=== PATIENT | female | born 1965 | race African-American/Black ===

== ENCOUNTER → 2023-07-25 13:46 | Outpatient (REF) | payer OTHER, SELFPAY | LOC: RCS 13:46 | PROVIDERS: ATTENDING PHYSICIAN Internal Medicine Cardiovascular Disease; FAMILY PHYSICIAN Internal Medicine | DX: R06.09 Other forms of dyspnea (principal) | CPT/HCPCS: 93306 ==

== ENCOUNTER → 2023-07-27 13:46 | Outpatient (REF) | payer OTHER, SELFPAY ==
--- NOTE | 2023-07-27 15:15 | CARDSERVDEF ---
Echocardiogram with Definity completed after protocol screening completed. Allergies verified.
Patent IV site: _Rt hand___
IV site flushed with 0.9% NaCl pre and post administration.
Diluted bolus method utilized to enhance visualization of ventricular royal.
Total volume given: ___3.5_ mL
Patient tolerated all procedures well without complications.
#22 paco placed Rt hand. Definity given. INT d/c'd. dsg applied.
== END ==
LOC: RCS 13:46
PROVIDERS: ATTENDING PHYSICIAN Internal Medicine Cardiovascular Disease; FAMILY PHYSICIAN Internal Medicine
DX: R06.09 Other forms of dyspnea (principal)
CPT/HCPCS: 93017; 93350; Q9957

== ENCOUNTER → 2025-05-18 14:07 | Outpatient (REF) | payer OTHER, SELFPAY | LOC: RCS 14:07 | PROVIDERS: ATTENDING PHYSICIAN Internal Medicine Cardiovascular Disease; FAMILY PHYSICIAN Internal Medicine | DX: R07.9 Chest pain, unspecified (principal); R07.89 Other chest pain | CPT/HCPCS: 93017; 93350 ==

== ENCOUNTER 2025-05-18 22:23 | Inpatient (IN) | payer OTHER, SELFPAY ==
[2025-05-18 16:33] VITALS: BP 159/68
[2025-05-18 17:15] LABS: Hematocrit 45.4 % (37.0-47.0); Hemoglobin 14.6 g/dL (12.0-16.0); Mean Corp Hgb Conc. 32.2 g/dL (33.0-37.0); Mean Corpuscular Volume 92.1 fL (81.0-99.0); Nucleated Red Blood Cells % 0 %; Platelet Count 204 10^3/uL (130-400); Red Cell Dist. Width 12.3 % (11.5-14.5)
[2025-05-18 17:27] LABS: ALT (SGPT) 24 U/L (0-35); AST (SGOT) 24 U/L (14-36); Albumin 4.8 g/dl (3.5-5.0); Alkaline Phosphatase 87 U/L (38-126); Blood Urea Nitrogen 15 mg/dl (7-17); Calcium 10.0 mg/dl (8.4-10.2); Carbon Dioxide 29 mmol/L (22-30); Chloride 102 mmol/L (98-107); Glucose 109 mg/dl (70-99); Lipase 68 U/L (23-300); Potassium 4.3 mmol/L (3.5-5.1); Sodium 137 mmol/L (135-145); Total Protein 7.4 g/dl (6.3-8.2); eGFR > 60.00
[2025-05-18 17:36] LABS: Troponin I < 0.012 ng/ml
[2025-05-18 19:35] VITALS: BP 134/68
[2025-05-18 19:36] VITALS: BP 134/68
[2025-05-18 19:38] VITALS: BMI 29.0
--- NOTE | 2025-05-18 19:38 | ED.GENMED ---
History of Present Illness
General
Chief Complaint: Chest Pain
Source: patient and physician
Exam Limitations: none
Time Seen by Provider: 05/18/25 19:37
Nursing documentation reviewed up to this point in time: agreed with
History of Present Illness
History of Present Illness:
Note:
CHIEF COMPLAINT(S)
Shortness of breath and chest pain.
HISTORY OF PRESENT ILLNESS
The patient is a 59-year-old female with a significant history of lupus currently presenting with shortness of breath and chest pain. The patient reports that the chest pain started approximately six weeks ago and is experienced particularly when
walking, such as moving from her home office to other areas like a building entrance. The patient describes the pain occurring inconsistently but mentions it occurs frequently enough to cause concern. She also experiences shortness of breath with
exertion. The patient notes a history of gastric reflux, for which standard treatment was insufficient.
The patients previous evaluations, including EKG and troponin levels, have been normal. She recalls a normal coronary catheterization about a decade ago, after which she was treated with a negative stress test; however, during that test, she
experienced a spike in heart rate from 120 to 220, which resolved with medication adjustments. The patient is concerned about potential blockages and recalls previous health discussions around evaluating this with a coronary computed tomography
angiography (CTA) or calcium scoring.
A family history of metabolic dysfunction is suggested by elevated cholesterol elements such as fluffy low-density lipoprotein (LDL) and lipoprotein.
PHYSICAL EXAM
General: Alert, no acute distress.
Skin: Warm, dry.
Head: Normocephalic, atraumatic.
Neck: Supple, trachea midline.
Eye Ears, nose, mouth and throat: Oral mucosa moist.
Cardiovascular: Normal peripheral perfusion, No edema. s1s2 no murmur
Respiratory: Respirations are non-labored. lungs clear
Gastrointestinal : Abdomen nondistended
Back: Normal range of motion, Normal alignment.
Musculoskeletal: Normal ROM, normal strength.
Neurological: Alert and oriented to person, place, time, and situation, No focal neurological deficit observed.
Psychiatric: Cooperative, appropriate mood & affect.
PLAN
The plan includes obtaining another troponin level to monitor for myocardial injury, discussing test results with her physician Lizzie and further consulting on the care path moving forward, and possibly conducting further tests such as CTA to
evaluate for coronary artery disease or pulmonary embolism.
DIFFERENTIAL DIAGNOSIS
The Differential Diagnosis includes, in no particular order and is not limited to:
1. Coronary artery disease
2. Exertional angina
3. Pulmonary embolism
4. Coronary microvascular dysfunction
5. Gastroesophageal reflux disease (GERD)
6. Costochondritis
7. Pulmonary hypertension
8. Asthma
9. Anxiety disorder
10. Myocardial ischemia
EKG
My independent EKG interpretation is:
- Time of EKG: Not specified
- Rhythm: Not specified
- Heart Rate: 58 bpm
- TX Interval: Normal
- QRS Duration: Normal
- QT Interval: Normal
- [place]: Normal
- ST Segment: Normal
- Notable Abnormalities: None observed
Disposition:
SUMMARY OF ENCOUNTER
The patient, a 59-year-old female, presented to the emergency department with chest pain of unclear etiology. Initial workup demonstrated negative serial troponins, a normal D-dimer, and a normal chest x-ray. Her chest pain improved with
administration of nitroglycerin and she was also given aspirin. After consulting with cardiology via Dr. Castañeda, it was determined that there was no immediate indication for emergent cardiac catheterization and heparin was not indicated at this time.
DISPOSITION
The patient was admitted to the hospitalist for further workup in consultation with cardiology.
EMERGENCY TREATMENTS ADMINISTERED
Nitroglycerin was administered, resulting in improvement of the patients chest pain. The patient was also given aspirin.
MANAGEMENT OF THE PATIENTS CARE WAS DISCUSSED WITH
Consultation was made with Dr. Castañeda in cardiology.
INDEPENDENT REVIEW OF LABS AND INTERPRETATION OF TESTS
My independent review of troponins are negative.
My independent review of D-dimer is normal.
My independent interpretation of chest x-ray is normal.
MEDICATION RECONCILIATION
Aspirin was administered.
Nitroglycerin was administered.
MEDICAL DECISION MAKING
Chronic conditions affecting care [Lupus]
- Complexity of Data Reviewed:
Coronary artery disease, Exertional angina, Pulmonary embolism, Coronary microvascular dysfunction, Gastroesophageal reflux disease (GERD), Costochondritis, Pulmonary hypertension, Asthma, Anxiety disorder, Myocardial ischemia
- Data:
Category 1
The independent interpretation of the plan included negative serial troponins and normal D-dimer, normal chest x-ray.
Category 3
Discussion of management with cardiology via Dr. Castañeda to assist in further care path decisions.
DIAGNOSIS
Chest pain, unspecified (ICD-10: R07.9)
Past History
Past History
ED Past Medical History: Asthma, GERD, HTN, Hypercholesterolemia and Other (Lupus)
Social History
Tobacco: Non-smoker
Phy Exam
Physical Exam
Physical Exam:
.
Scores
Heart Score for Chest Pain Patients
STEMI patient?: No
History: Moderately Suspicious
ECG: Normal
Age: >45 - <65 years
Risk Factors: 1 or 2 Risk Factors
Troponin: </= Normal Limit
Heart Score for Chest Pain Patients: 3
Heart Score Risk: 2.5% MACE over next 6 weeks
Course
Orders/Labs/Results
Orders:
Orders
05/18/25 16:27
Electrocardiogram (*1) Urgent
Reason for Study: Chest Pain
EKG- Treatment ONCE
05/18/25 16:45
Comprehensive Metabolic Panel Urgent
Lipase Urgent
05/18/25 16:46
Complete Blood Count/With Diff Urgent
Troponin I Urgent
05/18/25 19:51
IV Insert/Care/Rem.- Treatment PRN
05/18/25 20:17
D-Dimer Urgent
Troponin I Urgent
05/18/25 20:20
Nitroglycerin Sublingual [Nitrostat (Sublingual)] 0.4 mg SL NOW STA
05/18/25 21:02
Aspirin Chewable [Low Strength Aspirin] 324 mg PO NOW STA
05/18/25 21:10
Aspirin Chewable [Low Strength Aspirin] 243 mg .ROUTE .STK-MED ONE
05/18/25 21:22
CR Chest - 2 Views Urgent
Comment:
Reason For Exam: chest pain
05/18/25 22:08
Admit/Transfer Patient As Directed
Co-Sign Provider:
Level of Care: Inpatient admission
Assign to:: IVU
Physician / Group: cameron sweeney
Diagnosis: chest pain
Reason for Hospitalization: chest pain
Expected length of stay greater than two midnights?: Yes
ELOS- Estimated Length of Stay in days: 2
I certify the patient meets the requirements for IP care: Yes
05/18/25 22:09
Code Status As Directed
Resuscitation Status: Full Code
PRN Pain Medication Management As Directed
May give lesser potent ordered pain med per pt: Yes
preference::
Protocol:: Medication orders for pain may be administered in a
manner that supports deferring to patient preference
when the pt is:
- Requesting an ordered lesser potent pain medication.
Least to most potent pain medications are defined
as: acetaminophen < NSAID < tramadol < opioids
(morphine, oxycodone, hydromorphone).
- Requesting a lesser dose of the same medication IF
ORDERED.
- Requesting a less intrusive route of administration
if both routes are prescribed by the provider (PO <
IV).
05/18/25 22:16
Nitroglycerin Sublingual [Nitrostat (Sublingual)] 0.4 mg SL [id number] PRN
05/19/25 Breakfast
NPO
Allow oral meds: Yes
Allow clear liquids: Sips of Clears
Abnormal Lab Results
05/18/25 05/18/25
16:45 16:46
MCHC 32.2 L g/dL
(33.0-37.0)
MPV 11.3 H fL
(7.4-10.4)
Glucose 109 H mg/dl
(70-99)
05/18/25 16:46
05/18/25 16:45
Vital Signs
Initial and Last Documented VS:
Initial Vital Signs
Temp Pulse Resp BP Pulse Ox
97.7 F 60 16 159/68 100
05/18/25 16:33 05/18/25 16:33 05/18/25 16:33 05/18/25 16:33 05/18/25 16:33
Last Documented Vital Signs
Temp Pulse Resp BP Pulse Ox
98.1 F 51 16 105/48 96
05/18/25 22:28 05/18/25 23:00 05/18/25 23:00 05/18/25 23:00 05/18/25 23:06
*Pulse Oximetry
SaO2: 100
Oxygen Mode of Delivery: Room air
Patient hypoxic: no
*Critical Care Note
Total Time (30-74mins, 75-104mins- exclusive of procedures): Not Applicable
ED Attending Note
-
Portions of this chart may have been created with voice recognition software.� Occasional wrong word or��sound alike� substitutions may have occurred due to the inherent limitations of voice recognition software.
Discharge Plan
Departure
Patient Disposition: Admit
Date of Disposition: 05/18/25
Time of Disposition: 21:22
Admit to: IVU
Presentation/result/management discussed w/ accepting MD/DO: Hospitalist
Patient with high blood pressure during this ER visit?: Yes
Condition: Good
Discharge Problem:
Chest pain
Interventions
Interventions:
*Risk Screen - Suicide Last Done: 05/18/25 16:30
*General Assessment Last Done: 05/18/25 19:39
*Neglect/Abuse Screening Last Done: 05/18/25 16:30
*ED COVID-19 Vaccine History Last Done: 05/18/25 19:39
*ED Influenza Vaccine History Last Done: 05/18/25 19:39
[facility] Risk Assessment Tool Last Done: 05/18/25 19:39
ED- Cardiac Assessment Last Done: 05/18/25 19:39
[2025-05-18 20:00] VITALS: BP 128/61
[2025-05-18] MEDS: NITROSTAT (SUBLINGUAL) 0.4 MG SL (20:23)
[2025-05-18 20:36] LABS: D-Dimer 0.38 ug/mlFEU (0.00-0.50)
[2025-05-18 20:49] LABS: Troponin I < 0.012 ng/ml
[2025-05-18] MEDS: LOW STRENGTH ASPIRIN 324 MG PO (21:12)
[2025-05-18 22:00] VITALS: BP 123/65
--- NOTE | 2025-05-18 22:16 | HPS.HSE ---
Family Physician
-
Family Physician: Victor Manuel Soler
Chief Complaint
-
chest pain
History of Present Illness
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 Noted exercise intolerance several months prior which continued to spiral into left-sided chest
discomfort and shortness of breath. Notes that the chest discomfort is worse with exertion left-sided sharp radiating with sensations of feeling like she has to belch.
Earlier in the day had a stress test exercised for approximately 8 minutes however he began to have chest discomfort blood pressure 220/110. Recommended to go home. While ambulating out of the office developed chest discomfort and then was brought
over to the hospital.
Troponin negative x 2. EKG sinus bradycardia. On-call cardiology recommended no heparin and nitroglycerin as needed and evaluated in the morning.
Medical History
Past Medical History
Past Medical History: Reports HTN, Hypercholesterolemia and Other
Past Surgical History: Reports
Social History
Tobacco: Non-smoker
Alcohol: None
Drug: None
Personal:
Living: With Family
Employment: Employed
Family History
Family History: Not pertinent
Allergies / Home Medications
Allergies reflects when Allergies were last updated in [facility].
Home Medications with original date entered in [facility]
Allergy/Medication List:
Allergies
Allergy/AdvReac Type Severity Reaction Status Date / Time
iodine Allergy Anaphylaxis Verified 05/18/25 16:36
latex Allergy Unknown Verified 09/05/21 08:32
Home Medications
budesonide-formoterol HFA 80 mcg-4.5 mcg/actuation aerosol inhaler (Symbicort) 1 inh inhalation R BIDPRN PRN SOB 05/18/25
cholecalciferol (vitamin D3) 25 mcg (1,000 unit) tablet (Vitamin D3) 25 mcg PO DAILY Supplement 05/18/25
dexlansoprazole 30 mg capsule,biphase delayed release (Dexilant) 30 mg PO DAILY Gastrointestinal Issue 05/18/25
diltiazem HCl 120 mg capsule,24 hr,extended release 120 mg PO DAILY Heart Disease/Condition 05/18/25
hydrochlorothiazide 25 mg tablet 25 mg PO DAILY Fluid Retention/Swelling 05/18/25
hydroxychloroquine 200 mg tablet (Plaquenil) 200 mg PO DAILY 05/18/25
latanoprost 0.005 % eye drops 1 drp BOTH EYES HS Eye Condition 05/18/25
losartan 100 mg tablet 100 mg PO DAILY Blood Pressure 05/18/25
mycophenolate mofetil 500 mg tablet 500 mg PO DAILY 05/18/25
rosuvastatin 20 mg tablet (Crestor) 20 mg PO DAILY High Cholesterol 05/18/25
Review of Systems
-
A 12 point ROS was completed and negative except as noted: Yes
Physical Exam
Vital Signs
Vital Signs
Temp Pulse Resp BP Pulse Ox
98.1 F 59 15 128/61 99
05/18/25 19:36 05/18/25 20:15 05/18/25 20:15 05/18/25 20:23 05/18/25 20:15
Physical Exam
General: Well Developed, Well Nourished and No Apparent Distress
HEENT: NormoCephalic and Moist mucous membranes; No Anicteric
Respiratory: Clear; No Wheezes, Rales or Rhonchi
Cardiac: S1/S2 and Regular Rhythm
GI: Soft, Non Tender, Non Distended and Normal Bowel Sounds
Musculoskeletal: No Clubbing and No Cyanosis
Skin: Warm and Dry
Neuro: Awake and AO x 3
Psych: Calm
Laboratory Results
-
05/18/25 16:46
05/18/25 16:45
Laboratory Results
Total Bilirubin 1.0 mg/dl (0.2-1.3) 05/18/25 16:45
AST 24 U/L (14-36) 05/18/25 16:45
ALT 24 U/L (0-35) 05/18/25 16:45
Alkaline Phosphatase 87 U/L (38-126) 05/18/25 16:45
Troponin I < 0.012 ng/ml 05/18/25 20:17
Lipase 68 U/L (23-300) 05/18/25 16:45
Impression/Plan
-
Chest discomfort
Stable angina versus hypertension induced
Troponin negative x 2
EKG nonischemic however sinus bradycardia
Telemetry monitoring
N.p.o. after midnight in the off chance cardiology wants [facility]
Consult cardiology, Dr. Castañeda aware per ED
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
Plaquenil
And CellCept
Hypertension
Continue antihypertensive
Vitamin D deficiency
Continue supplementation
Hyperlipidemia
Continue statin
[2025-05-18 23:00] VITALS: BP 105/48
[2025-05-19] VITALS (17 sets, daily range): BP systolic 95–139; BP diastolic 44–98; BMI 27.8
[2025-05-19 04:51] LABS: Hematocrit 38.5 % (37.0-47.0); Hemoglobin 12.7 g/dL (12.0-16.0); Mean Corp Hgb Conc. 33.0 g/dL (33.0-37.0); Mean Corpuscular Volume 90.4 fL (81.0-99.0); Platelet Count 199 10^3/uL (130-400); Red Cell Dist. Width 12.3 % (11.5-14.5)
--- NOTE | 2025-05-19 05:03 | PTCARENOTE ---
Received patient from ED via stretcher at approximately 0130. Patient ambulated from stretcher to bed x1 assist - gait steady. AAOx3, pleasant. Sinus timothy on the monitor - HR in 50s. Palpable pedal pulses bilaterally. Patient admitted w/ chest pain
- patient reported L sided chest pain/pressure. Pain 4/10 at worst during ER visit - pain radiates to back at times. Patient reports being able to 'feel heart beating between shoulder blades' at times. Pain/pressure worse w/ ambulation/exertion.
Left chest wall tender to palpation. POX 97-99% on room air. Lungs CTA bilaterally. Dyspnea on exertion @ times. +BS - soft/round/nontender abdomen. Patient reports poor appetite/indigestion feeling over past few weeks. Continent of bowel and
bladder. LAC IV capped. Patient updated on plan of care.
[2025-05-19 05:44] LABS: Blood Urea Nitrogen 15 mg/dl (7-17); Calcium 9.6 mg/dl (8.4-10.2); Carbon Dioxide 28 mmol/L (22-30); Chloride 105 mmol/L (98-107); Estimated Creatinine Clearance 105 ml/min; Glucose 109 mg/dl (70-99); HDL Cholesterol 63 mg/dl; LDL Cholesterol, Calculated 46 mg/dl; Sodium 138 mmol/L (135-145); Very Low Density Lipoprotein 12 mg/dl (0-30); eGFR > 60.00
[2025-05-19 05:52] LABS: Potassium 3.9 mmol/L (3.5-5.1)
--- NOTE | 2025-05-19 07:40 | PTCARENOTE ---
Pt rec'd in report from night RN, pt assessed during walking rounds, Aox3, pleasant...no complaints at this time other than minor 'rib pain' - no chest pain at this time. Pt anxious to go home, will discuss plan with MD upon rounds.
[2025-05-19] MEDS: CELLCEPT 500 MG PO (08:26)
[2025-05-19] MEDS: COZAAR 100 MG PO (08:26)
[2025-05-19] MEDS: VITAMIN D3 (cholecalciferol) 25 MCG PO (08:26)
[2025-05-19] MEDS: CARDIZEM CD 120 MG PO (08:26)
[2025-05-19] MEDS: PLAQUENIL 200 MG PO (08:26)
[2025-05-19] MEDS: CRESTOR 20 MG PO (08:26)
[2025-05-19] MEDS: ORETIC 25 MG PO (08:26)
--- NOTE | 2025-05-19 08:31 | PTCARENOTE ---
Pt assigned room 2265, pt updated, meds administered at this time. Pt declines protonix, states she will take later.
--- NOTE | 2025-05-19 08:46 | CON.CAR ---
Addendum entered and electronically signed by Karen Haque DO 05/19/25 10:20:
I saw and examined the patient.
The Perforator's note was reviewed and I agree with the note.
Comment: Patient was seen and examined in ICU 336 today. I also met Dr. Brothers yesterday following stress echocardiogram. 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
diabetes, hyperlipidemia, chronic GERD who was seen on 05/15/2025 with complaints of exertional chest discomfort associated with belching. She was ordered to start aspirin 81 mg daily as well as stress echo which was completed on 05/18/2025. She
completed 8 minutes of activity, however then was noted to have chest discomfort with elevated blood pressure of 226/110. She did not achieve heart rate goal, is on Cardizem CD 120 mg daily as outpatient. Chest pain and blood pressures had started
to improve in recovery and she was chest pain-free. Imaging did not show any evidence of acute ischemia. As she was leaving cardiac services she had recurrence of chest pain and was referred to the ER for evaluation. She was admitted to ICU as no
IVU bed was available. Blood pressures continue to trend down overnight. No recurrences of chest pain. Reports her lupus has been fairly stable, followed chronically by rheumatology.
General: No acute distress, AAOX3
Neck: Negative JVD
Heart: Regular, positive S1/S2, No murmur
Lungs: CTA b/l, negative wheezes/rales/rhonchi
Abd: Positive BS, NT/ND, neg rebound/rigidity/guarding
Ext: Negative cyanosis/clubbing/edema
Neuro: nonfocal
Plan:
Atypical chest discomfort
-Patient exercised on a [place] protocol for just over 8 minutes however only achieved 80% max predicted heart rate on outpatient Cardizem CD1 120 mg daily [did not take the morning of the test but did take the day before]; stress EKG and
echocardiographic imaging without evidence of ischemia however patient developed atypical chest pain and a hypertensive blood pressure response
- Cardiac troponins negative.
- CXR without acute abnormality
-Twelve-lead EKG normal sinus rhythm/sinus bradycardia with no acute ischemic changes. Normal EKG.
- In sinus rhythm on telemetry overnight without arrhythmias noted
- Baseline echo with EF 60 to 65%
- Blood pressures improved overnight so we will continue current medical therapy including Cardizem, Cozaar and hydrochlorothiazide.
- She will discuss antihypertensive management with her outpatient title processor. Consider discontinuing Cardizem due to concern for chronotropic incompetence/sinus bradycardia.
- Plan for outpatient coronary CTA to further evaluate. We did discuss option of cardiac catheterization, however based on results of stress testing with no clear ischemia with good exercise tolerance, risks of cath still felt to outweigh potential
yield .
- continue asa 81 mg daily for now
- ambulate. avoid strenuous activity until coronary CTA completed
- Stable from a cardiovascular standpoint for discharge home and will arrange outpatient cardiac follow-up
Original Note:
Consultation
Consultation Request
Date/Time Consultation Performed: 05/19/25
Requesting Provider: Dr. Richardson Sanchez
Performing Provider: Alea Arita PA-C for Dr. Haque
Reason for Consultation: Chest pain, hypertension
Medical History
-
Chief Complaint: Chest pain
History of Present Illness:
Patient is a 59-year-old female with past medical history of lupus, antiphospholipid antibody syndrome, type 2 diabetes, hyperlipidemia, chronic GERD who was seen on 05/15/2025 with complaints of exertional chest discomfort associated with belching.
She was ordered to start aspirin 81 mg daily as well as stress echo which was completed on 05/18/2025. She completed 8 minutes of activity, however then was noted to have chest discomfort with elevated blood pressure of 226/110. She did not achieve
heart rate goal, is on Cardizem CD 120 mg daily as outpatient. Imaging did not show any evidence of acute ischemia, however as in recovery she also had complained of chest discomfort, was referred to ER for further evaluation. She was admitted to
ICU as no IVU bed was available. Blood pressures continue to trend down overnight. No recurrences of chest pain. Reports her lupus has been fairly stable, followed chronically by rheumatology.
PMH:
Sinus bradycardia
Diastolic dysfunction
History of stroke
Antiphospholipid antibody syndrome
History of GI bleeding
SLE
Hypertension
Hyperlipidemia
Type 2 diabetes
GERD
Past Medical History
Past Medical History: Other (in HPI)
Social History
Tobacco: Non-Smoker
Personal:
Living: With Family
Employment: Employed
Family History
Family History: CAD, Diabetes and Hypertension
Allergies / Home Medications
Allergy/AdvReac Type Severity Reaction Status Date / Time
iodine Allergy Anaphylaxis Verified 05/18/25 16:36
latex Allergy Unknown Verified 09/05/21 08:32
�Medication �Instructions �Recorded �Confirmed �Type
budesonide-formoterol HFA 80 1 inh inhalation R BIDPRN PRN SOB 05/18/25 05/18/25 History
mcg-4.5 mcg/actuation aerosol
inhaler (Symbicort)
cholecalciferol (vitamin D3) 25 25 mcg PO DAILY Supplement 05/18/25 05/18/25 History
mcg (1,000 unit) tablet (Vitamin
D3)
dexlansoprazole 30 mg 30 mg PO DAILY Gastrointestinal 05/18/25 05/18/25 History
capsule,biphase delayed release Issue
(Dexilant)
diltiazem HCl 120 mg capsule,24 120 mg PO DAILY Heart 05/18/25 05/18/25 History
hr,extended release Disease/Condition
hydrochlorothiazide 25 mg tablet 25 mg PO DAILY Fluid 05/18/25 05/18/25 History
Retention/Swelling
hydroxychloroquine 200 mg tablet 200 mg PO DAILY 05/18/25 05/18/25 History
(Plaquenil)
latanoprost 0.005 % eye drops 1 drp BOTH EYES HS Eye Condition 05/18/25 05/18/25 History
losartan 100 mg tablet 100 mg PO DAILY Blood Pressure 05/18/25 05/18/25 History
mycophenolate mofetil 500 mg tablet 500 mg PO DAILY 05/18/25 05/18/25 History
rosuvastatin 20 mg tablet (Crestor) 20 mg PO DAILY High Cholesterol 05/18/25 05/18/25 History
Review of Systems
-
History Source: Patient
All other systems: Negative unless noted
Physical Exam
Vital Signs
Temp Pulse Resp BP Pulse Ox
98.3 F 51 22 119/55 97
05/19/25 07:59 05/19/25 07:45 05/19/25 07:45 05/19/25 07:30 05/19/25 02:45
Lab Results
05/19/25 04:42
05/19/25 04:42
Troponin I < 0.012 ng/ml 05/18/25 20:17
Physical Exam
General: No Apparent Distress and Comfortable
HEENT: Normocephalic, Anicteric and Moist Mucous Membranes
Respiratory: Clear and Non Labored Respirations
Cardiac: S1/S2 and Regular Rhythm (and timothy)
Musculoskeletal: No Clubbing, No Cyanosis and No Edema
Skin: Warm and Dry
Neuro: AO x 3
Impression / Plan
-
Primary Headlight Assembler: Dr. Lizzie Sparks
Assessment:
CP s/p SE 05/18/25 with no evidence of active ischemia however did not reach target heart rate and developed CP and HTN at peak exercise
Serially negative troponins
Sinus bradycardia
Diastolic dysfunction
History of stroke
Antiphospholipid antibody syndrome
History of GI bleeding
SLE
Hypertension
Hyperlipidemia
Type 2 diabetes
GERD
Echo 07/25/2023: EF 55 to 60%, no significant valvular disease
Stress echo 05/18/2025: Submaximal stress test with failure to reach target heart rate, no evidence of inducible ischemia at level of exercise achieved (8: 15), no exercise-induced arrhythmias, good exercise tolerance, hypertensive response with
exertional chest discomfort, directed to ER
Plan:
- Patient had stress echo yesterday with submaximal heart rate response, however no evidence of inducible ischemia, however was significantly hypertensive with peak exercise as well as with symptoms of exertional chest discomfort and referred to the
ER and admitted.
- Serial troponins negative overnight
- CXR without acute abnormality
- She does report reproducible component to her chest discomfort
- In sinus rhythm on telemetry overnight without arrhythmias noted
- Baseline echo with EF 60 to 65%
- Noted to be sinus bradycardia on telemetry overnight with heart rates mostly in 50s, however occasionally in 40s overnight. no c/o dizziness
- Plan for outpatient coronary CTA to further evaluate. We did discuss option of cardiac catheterization, however based on results of stress testing with no clear ischemia with good exercise tolerance, risks of cath still felt to outweigh potential
yield
- BPs improved overnight. will continue OP cardizem, cozaar, HCTZ.
- pending results of coronary CTA, could consider medication adjustment including transition of cardizem to norvasc or nifedipine.
- continue asa 81 mg daily for now
- ambulate. avoid strenuous activity until coronary CTA completed
- will arrange OP cardiac follow up. no issue with DC from cardiac standpoint today
- d/w nursing. d/w hospitalist via TT
Data Reviewed
-
EKG: Tracing Personally Visualized and interpreted
Radiology: Report Reviewed by me
Medical Tests (Nuc Med, Echo etc): Report Reviewed by me
Labs: Labs Reviewed by me
Old Records: Reviewed
--- NOTE | 2025-05-19 08:52 | PTCARENOTE ---
Pt assessed by cards Dr. Haque and MARJ Cosby at bedside, stable for discharge today. Awaiting orders at this time.
--- NOTE | 2025-05-19 11:41 | W.PN.HOSP.TC ---
Today's Communication/Plan
-
Monitor vital signs see plan
Discussed with cardiology, discharge home today
CTA with potential chronic catheterization outpatient
Time of discharge 36 minutes
Assessment / Plan
Assessment / Plan
General: Well Developed, Well Nourished and No Apparent Distress
HEENT: NormoCephalic and Moist mucous membranes; No Anicteric
Respiratory: Clear; No Wheezes, Rales or Rhonchi
Cardiac: S1/S2 and Regular Rhythm
GI: Soft, Non Tender, Non Distended and Normal Bowel Sounds
Musculoskeletal: No Clubbing and No Cyanosis
Skin: Warm and Dry
Neuro: Awake and AO x 3
Psych: Calm\\
Atypical chest pain
Patient exercised on a [place]an protocol for just over 8 minutes however only achieved 80% max predicted heart rate on outpatient Cardizem CD1 120 mg daily [did not take the morning of the test but did take the day before]; stress EKG and
echocardiographic imaging without evidence of ischemia however patient developed atypical chest pain and a hypertensive blood pressure response
Suspect could be induced by hypertension
Troponin negative
EKG nonischemic however sinus bradycardia
Cardiology following. Continue with baby aspirin. Plan for outpatient coronary CTA to further evaluate potential cardiac catheterization. Discussed with cardiology, discharge home today
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
Plaquenil
And CellCept
Hypertension
Continue antihypertensive
Vitamin D deficiency
Continue supplementation
Hyperlipidemia
Continue statin
Full code
DVTppx
Lovenox
Anticipated Discharge: Today
Subjective/Interval History
-
Date of Service: May 19, 2025
denies pain
Objective Data
-
Labs:
Laboratory Results
05/19/25
04:42
WBC 5.0
Hgb 12.7
Hct 38.5
Plt Count 199
Sodium 138
Potassium 3.9
Chloride 105
Carbon Dioxide 28
BUN 15
Creatinine 0.6
Glucose 109 H
Calcium 9.6
Vital Signs:
Vital Signs
Temp Pulse Resp BP Pulse Ox
98.3 F 57 15 137/70 100
05/19/25 07:59 05/19/25 11:38 05/19/25 11:38 05/19/25 11:38 05/19/25 11:38
--- NOTE | 2025-05-19 11:46 | PTCARENOTE ---
Pt cleared for discharge per Dr. Mckeon, IV and monitor dc'd, at bedside.
--- NOTE | 2025-05-19 11:52 | W.DCSUMMARY ---
Discharge Summary
Discharge Data
Date of Admission: 05/18/25
Date of Discharge: 05/19/25
-
Pending Results: No
Hospital Course
59-year-old female with past medical history of lupus, hypertension, vitamin D deficiency, hyperlipidemia came to the hospital with atypical chest pain. Patient troponin were negative on this hospitalization. She started to have an exercise test
however was able to tolerate for 8 minutes discussed with her and she started developing atypical chest pain and hypertension. I think with patient she will continue to improve over time. Cardiology recommended patient to follow-up with them
closely outpatient with outpatient coronary CTA and possible potential cardiac catheterization. Since patient symptoms were improving, cardiology deemed stable to be discharged home. Patient was then discharged home with close instructions to
follow-up with all her physicians outpatient.
Discharge Plan
-
Patient Disposition: Home (Routine Discharge)
Discharge Diagnosis/Procedures: Atypical chest pain
Condition: Good
Diet: As tolerated
Activity: As tolerated and No strenuous activity
Additional Activity: No strenuous activity until CTA completed
Driving Restrictions: As prior to admission
Bathing Restrictions: None
Activity Restrictions/Additional Instructions:
Cardiology will set up CTA
Referrals:
Lizzie Sparks MD [Active, Cardiology] - in one week
Victor Manuel Soler MD [Family Provider, Internal Medicine] - in less than 1 week
Prescriptions:
Continued
latanoprost 0.005 % Drops
1 drp BOTH EYES HS
mycophenolate mofetil 500 mg tablet
500 mg PO DAILY
diltiazem HCl 120 mg Capsule,Extended Release 24 Hr
120 mg PO DAILY
hydrochlorothiazide 25 mg Tablet
25 mg PO DAILY
hydroxychloroquine [Plaquenil] 200 mg Tablet
200 mg PO DAILY
losartan 100 mg Tablet
100 mg PO DAILY
rosuvastatin [Crestor] 20 mg Tablet
20 mg PO DAILY
budesonide-formoterol [Symbicort] 80-4.5 mcg/actuation Hfa Aerosol Inhaler
1 inh INHALATION R BIDPRN PRN (Reason: SOB)
cholecalciferol (vitamin D3) [Vitamin D3] 25 mcg (1,000 unit) Tablet
25 mcg PO DAILY
dexlansoprazole [Dexilant] 30 mg Capsule,Biphase Delayed Releas
30 mg PO DAILY
Discharge Orders:
Discharge Patient (As Directed); Ordered 05/19/25
Ordered By: Gaston Mckeon
Discharge Date and Time
Discharge Date/Time: 05/19/25 12:10
Print Language: MAORI
--- NOTE | 2025-05-19 12:00 | CM ---
Patient will discharge home today, initial assessment completed. 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
Patient resides w/ spouse and their college aged son in a 2STH w/ basement, 4 steps to enter. Patient independent in all areas. Uses CPAP at night. No SNF/HC hx. OP PT hx for shoulder.
Address, point of contact and insurance verified
PCP: Victor Manuel Soler
Pharmacy: [facility]
Plan: Home today, no needs
== END 2025-05-19 12:10 | disposition home or self-care (01) | DRG 313 ==
LOC: ICU 22:23
PROVIDERS: Emergency Medicine; ADMITTING PHYSICIAN Hospitalist; ATTENDING PHYSICIAN Internal Medicine; EMERGENCY PHYSICIAN Emergency Medicine; FAMILY PHYSICIAN Internal Medicine; OTHER PHYSICIAN Internal Medicine Cardiovascular Disease; REFERRING PHYSICIAN Internal Medicine Cardiovascular Disease
DX: R07.89 Other chest pain (principal); I10 Essential (primary) hypertension; E55.9 Vitamin D deficiency, unspecified; E11.9 Type 2 diabetes mellitus without complications; K21.9 Gastro-esophageal reflux disease without esophagitis; Z79.82 Long term (current) use of aspirin; Z86.73 Personal history of transient ischemic attack (TIA), and cerebral infarction without residual deficits
CPT/HCPCS: 71046; 80048; 80053; 80061; 83690; 84484; 85025; 85027; 85379; 93005; 99285

== ENCOUNTER → 2025-05-21 09:29 | Outpatient (REF) | payer OTHER, SELFPAY | LOC: RAD 09:29 | PROVIDERS: ATTENDING PHYSICIAN Internal Medicine Cardiovascular Disease; FAMILY PHYSICIAN Internal Medicine | DX: I10 Essential (primary) hypertension (principal); R06.02 Shortness of breath; I51.9 Heart disease, unspecified | CPT/HCPCS: 75574; Q9967 ==

== ENCOUNTER 2025-05-25 06:10 | Day surgery (SDC) | payer OTHER, SELFPAY ==
[2025-05-25 06:58] LABS: Glucose - Point of Care 207 mg/dl (70-99)
[2025-05-25 07:11] LABS: Blood Urea Nitrogen 21 mg/dl (7-17); Calcium 10.2 mg/dl (8.4-10.2); Carbon Dioxide 28 mmol/L (22-30); Chloride 103 mmol/L (98-107); Estimated Creatinine Clearance 109 ml/min; Glucose 197 mg/dl (70-99); Potassium 4.1 mmol/L (3.5-5.1); Sodium 138 mmol/L (135-145); eGFR > 60.00
[2025-05-25] MEDS: NSS 241 ML IV (07:31)
[2025-05-25] MEDS: NSS 1000 IV (10:14)
--- NOTE | 2025-05-25 12:46 | ITS.CL.CATH ---
[facility] - Catheterization
Cardiac Catheterization
Procedure Report:
LEFT HEART CATHETERIZATION
Date of Procedure: May 25, 2025
Referring: Lizzie Sparks MD
PROCEDURES:
1. Left heart catheterization, coronary angiogram.
2. Moderate sedation.
INDICATION: Ongoing exertional chest discomfort
ACCESS: Right radial artery, 6Fr. sheath, under US guidance.
HEMODYNAMICS : (mmHg)
AO (s/d) : 137/62
LVEDP : 15
No significant gradient across the aortic valve to suggest aortic stenosis.
CORONARY FINDINGS
Dominance: Right
Left Main Trunk (LMT): Large caliber vessel that gives rise to the LAD and LCx branches and is free of angiographic disease.
Left Anterior Descending Artery (LAD): Large caliber vessel that gives off 2 major diagonal branches as it courses along the anterior inter-ventricular groove before wrapping around the cardiac apex. Mid LAD just distal to the takeoff of D1 has 30
to 40% stenosis. Distal to that there is a significant myocardial bridge.
Left Circumflex Artery (LCx): Large caliber vessel that gives off 2 major obtuse marginal (OM) branches as it courses along the atrio-ventricular (AV) groove. The LCx and its branches are free of angiographic disease.
Right Coronary Artery (RCA): Large caliber dominant vessel that gives rise to the posterior descending artery (RPDA) and very small postero-lateral ventricular (RPLV) branches distally. The RCA and its branches are free of angiographic disease.
SEDATION: 22minutes of procedural sedation was utilized. IV Midazolam and IV Fentanyl were administered. An independent medical information specialist was present to assist with and help manage the patient's level of consciousness and physiologic status.
Closure Device: There were no immediate intra-procedural complications. The sheath was pulled in the labelling machine operator and a vascular-band applied to the right wrist for radial artery hemostasis using the patent hemostasis technique.
CONCLUSIONS
1. No obstructive coronary artery disease.
2. Mid LAD myocardial bridge.
3. LVEDP 15 mmHg.
RECOMMENDATIONS
1. Wean radial band per protocol. Monitor right hand perfusion and for bleeding from the radial site following removal of the vascular-band following trans-radial access.
2. Continue aggressive medical therapy and risk factor modification for secondary CAD prevention. Low-dose beta-bailey added Toprol 12.5 mg daily given myocardial bridge
3. Hydrate with normal saline to mitigate the risk of contrast-induced acute kidney injury.
4. Follow-up with Dr. Sparks.
Copy to: Lizzie Sparks MD
Cristal Carroll MD, FAC, [facility]
== END 2025-05-25 11:35 | disposition home or self-care (01) ==
LOC: CATH 06:10
PROVIDERS: ATTENDING PHYSICIAN Internal Medicine Interventional Cardiology
DX: R07.89 Other chest pain (principal); Q24.5 Malformation of coronary vessels; I10 Essential (primary) hypertension; E78.00 Pure hypercholesterolemia, unspecified; Z79.899 Other long term (current) drug therapy
CPT/HCPCS: 99152; 80048; 82962; 93458; C1769; Q9967